=== PATIENT | female | born 1965 | race Caucasian/White ===

== ENCOUNTER 2017-01-03 13:34 | Outpatient (CLI) | payer OTHER ==
[~2017-01-03 13:34] MED LIST: ATORVASTATIN CA10 MG PO; BIOTIN5 MG PO; CALCIUM/VITAMI600 MG; COUMADIN5 MG PO; LOVENOX80 MG/0.8 SC; PEPCID AC10 MG PO; VITAMIN D-32000 UNIT PO
--- NOTE | 2017-01-03 14:56 | DIAGNOSTIC IMAGING REPORT ---
PROCEDURE: MG BILATERAL SCREENING W/CAD INDICATION: SCREENING TECHNIQUE: Bilateral CC and MLO digital views. COMPARISON: Compared to 08/10/2011 and 02/08/2007. FINDINGS: Computer-aided detection applied. Mildly dense. No change. IMPRESSION: 1. Negative mammogram. RESULT CODE: 1- Negative. A. A negative report should not delay biopsy if a dominant or clinically suspicious mass is present. 10-15% of cancers are not identified by x-ray. B. A negative report may reinforce clinical impression. C. Adenosis and dense breasts may obscure an underlying neoplasm. D. False positive reports average 6-10%. E.. A yearly screening mammogram is recommended. A reminder letter will be scheduled.
[2017-02-23] MEDS ORDERED: B COMPLETE PO (11:45)
[2017-02-23] MEDS ORDERED: ESTRADIOL0.025 MG (11:46)
== END 2017-01-03 23:00 ==
LOC: MAM SRH 13:34
DX: Z12.31 Encounter for screening mammogram for malignant neoplasm of breast (principal)